=== PATIENT | male | born 1930 | race Caucasian/White ===

== ENCOUNTER 2019-05-12 21:05 | Emergency (ER) | payer MEDICARE, BC ==
[~2019-05-12 21:05] MED LIST: ATEN50TA PO; RIVA10TA PO; SIMV10TA6 PO; SITA50TA PO
--- NOTE | 2019-05-12 21:57 | NUR ---
Patient left without being seen by ER physician.
== END 2019-05-12 22:02 | disposition left against medical advice (07) ==
LOC: ER 21:05
DX: Z53.21 Procedure and treatment not carried out due to patient leaving prior to being seen by health care provider (principal)